=== PATIENT | male | born 1965 | race African-American/Black ===

== ENCOUNTER 2018-01-23 14:23 | Inpatient (IN) ==
[2018-01-23] MEDS ORDERED: Acetaminophen 325 MG Tablet PO PRN (19:43)
[2018-01-23] MEDS ORDERED: Aluminum/Magnesium/Simethacone Susp 30 ML UDC PO PRN (19:44)
[2018-01-23] MEDS: QUEtiapine 100 MG Tablet PO SCH (21:45)
[2018-01-23] MEDS: OXcarbazepine 300 MG Tablet PO SCH (21:45)
[2018-01-23] MEDS: QUEtiapine 25 MG Tablet PO SCH (21:46)
[2018-01-24] MEDS: OXcarbazepine 300 MG Tablet PO SCH ×2 (08:05→21:57)
[2018-01-24] MEDS: Lisinopril 20 MG Tablet PO SCH (08:05)
[2018-01-24] MEDS: QUEtiapine 25 MG Tablet PO SCH ×2 (08:06→21:41)
[2018-01-24 08:40] LABS: Anion Gap 4 meq/L (5-15); Blood Urea Nitrogen 14 mg/dL (7-18); Calcium 8.9 mg/dL (8.5-10.1); Carbon Dioxide 30.4 meq/L (21.0-32.0); Chloride 107 meq/L (98-107); Glomerular Filtration Rate Greater Than 89 mL/min (>89); Glucose,Random 161 mg/dL (74-106); Potassium 4.4 meq/L (3.5-5.1); Sodium 141 meq/L (136-145); Triglycerides 128 mg/dL (42-150)
[2018-01-24 08:43] LABS: Chol/HDL Ratio 1.68 Ratio; Cholesterol 136 mg/dL (120-200); HDL Cholesterol 80.9 mg/dL (40.0-60.0); LDL Cholesterol,Calculated 30 mg/dL (0-99)
[2018-01-24] MEDS ORDERED: Aluminum/Magnesium/Simethacone Susp 30 ML UDC PO PRN (11:12)
[2018-01-24] MEDS ORDERED: Lisinopril 20 MG Tablet PO SCH (11:15)
--- NOTE | 2018-01-24 11:28 | P.HPPSY ---
Provisional Diagnosis Admission Date: January 23, 2018 18:17 Secretary I.: Cocaine abuse, marijuana abuse, substance-induced psychosis with hallucinations , personality disorder cluster B Competence Certification of Person's Competence To Provide Express and Informed Consent I have personally examined Harjit Guerra, a person being served at [facility] on, January 24, 2018 1118. Express and informed consent means consent voluntarily given in writing, by a competent person, after sufficient explanation and disclosure of the subject matter involved to enable the person to make a knowing and willful decision without any element of force, fraud, deceit, duress, or other form of constraint or coercion. This person is 18 years of age or older, is not now known to be incompetent to consent to treatment with a guardian advocate, and does not have a health care surrogate or proxy currently making medical treatment decisions. I have found this person to be one of the following: [xxx] Competent to provide express and informed consent, as defined above, for voluntary admission to this facility and is competent to provide express and informed consent for treatment. He/she has the consistent capacity to make well reasoned, willful, and knowing decisions concerning his or her medical or mental health treatment. The person fully and consistently understands the purpose of the admission for examination/placement and is fully capable of personally exercising all rights assured under [place] [] Incompetent to provide express and informed consent to voluntary admission, and this is incompetent to provide express and informed consent to treatment. The person must be transferred to involuntary status and a petition for a guardian advocate filed with the Circuit Court. [] Refusing to provide express and informed consent to voluntary admission but is competent to provide express and informed consent for treatment. The person must be discharged or transferred to involuntary status. Form shall be completed within 24 hours of a person's arrival at the receiving facility and filed in the clinical record of each person: 1. Admitted on a voluntary basis 2. Permitted to provide express and informed consent to his/her own treatment 3. Allowed to transfer from involuntary to voluntary status 4. Prior to permitting a person to consent to his or her own treatment after having been previously found incompetent to consent to treatment. History of Present Illness Capacity: Has capacity History of Present Illness: Patient is a 52-year-old -[place] male comes here under Walker act from [facility] dated 01/24/2018 at 0140 hours that document reviewed essentially states he reports no onset of hearing voices telling him to cut his own throat patient seen screen at that facility urine toxicology positive for marijuana and cocaine. Patient transferred here under the Walker act after being medically cleared at that facility. At the present time patient laying in his bed on 2700. Also present was nurse Peg and counselor Don. Giving a contradictory story about his recent history. He states he goes to mental health clinic in [place] that he was there to get refills on his medicines since he been out of his medicine for almost a month however it appears there was narrowing lunchtime and he met some friends there and they went out and they smoke marijuana and did cocaine leading to him not returning there to get his refills leading him to go to the hospital and winding up here. Patient did acknowledge her criminal history of dealing in cocaine [facility] 9 [facility] out of [facility] around 2017. He minimizes his substance use he gets angry and somewhat paranoid when I attempted to get more specific details. He initially said he does not have a mental illness and is quite vague about it and his need for medications then he said he went to the hospital initially to get medicines for his mental illness. Patient is vague about suicidality with me he is vague about voices at this time. He states he is essentially homeless right now. Per his med reconciliation is on multiple medications in an various small dosages. In any event at this time patient does meet criteria for further observation for 24 hours especially continuances some day and there are no other resources available. We will continue his medications to the med reconciliation. With the intention of continuing them tonight patient to be discharged tomorrow to himself with perhaps a small amount of his medications and he can return to follow up with his clinic in [place]. We will also attempt to refrain from any substances of abuse such as opiates or benzodiazepines or barbiturates - Inpatient Certification I certify that the inpatient services were ordered in accordance with Medicare regulations governing the order. This includes certification that hospital inpatient services are reasonable and necessary and in the case of services not specified as inpatient-only under 42 CFR 419.22(n), that they are appropriately provided as inpatient services in accordance to with the 2-midnight benchmark under 43 CFR 412.3(e) I certify that inpatient psychiatric hospital services are medically necessary. Evaluation and treatment and/or diagnostic testing are expected to improve the patient's condition. The patient needs on a daily basis, active treatment furnished directly by or requiring the supervision of inpatient psychiatric facility personnel. Estimated Total Length of Stay (Days): 1 Plans for Post Hospital Care: Not yet determined Review of Systems All other systems reviewed negative except as stated in HPI [facility] - History History Provided By: Patient, Medical Record - Tobacco History Second Hand Smoke Exposure: No Tobacco Use In Past 30 Days: No Smoking Status: Former smoker Tobacco Type: Cigarettes - Alcohol History How Often Do You Have a Drink Containing Alcohol: Monthly or less - Substance Use History Substance History: No History of Abuse - Immunization History Tetanus Immunization: <5 Years Hx Influenza Vaccine This Season: Yes Quality Measures - Psychiatric History Psychological trauma history: Patient vaguely denies Violence risk to others in the last 6 months: Patient denies Violence risk to self in the last 6 months: Patient makes statements concerning voices telling him to harm himself - Substance Abuse History Drug or alcohol use in the past 12 months: Marijuana and cocaine - Patient Strengths Patient's strengths (minimum of 2): Patient verbal able access healthcare Medications and Allergies Active Medications: Active Medications Acetaminophen (Tylenol) 650 mg PO Q4H PRN PRN Reason: PAIN SCALE 1-5 OR TEMP>101F Al Hydrox/Mg Hydrox/Simethicone (Mag-Al Plus Susp Liq) 30 ml PO Q6H PRN PRN Reason: DYSPEPSIA Al Hydrox/Mg Hydrox/Simethicone (Mag-Al Plus Susp Liq) 30 ml PO Q6H PRN PRN Reason: DYSPEPSIA Al Hydroxide/Mg Hydroxide (Milk Of Magnesia Liq) 30 ml PO DAILY PRN PRN Reason: CONSTIPATION Al Hydroxide/Mg Hydroxide (Milk Of Magnesia Liq) 30 ml PO Q12H PRN PRN Reason: Mild Constipation Aripiprazole (Abilify) 20 mg PO DAILY [facility] Last Admin: 01/24/18 08:42 Dose: 20 mg Aripiprazole (Abilify) 20 mg PO DAILY [facility] Aspirin (Ecotrin) 81 mg PO DAILY [facility] Last Admin: 01/24/18 08:05 Dose: 81 mg Atorvastatin Calcium (Lipitor) 80 mg PO [facility] Last Admin: 01/23/18 21:46 Dose: 80 mg Atorvastatin Calcium (Lipitor) 80 mg PO [facility] Buspirone HCl (Buspar) 10 mg PO BID [facility] Last Admin: 01/24/18 08:05 Dose: 10 mg Clonidine HCl (Catapres) 0.1 mg PO BID [facility] Last Admin: 01/24/18 08:06 Dose: 0.1 mg Clonidine HCl (Clonidine (Nicu) 20 Mcg/Ml Liq) 100 mcg PO BID [facility] Hydroxyzine HCl (Atarax) 50 mg PO Q6H PRN PRN Reason: ANXIETY Insulin Aspart (Novolog Insulin Correctional Sugar Inj) 8 unit SQ TIDAC [facility] Lisinopril (Prinivil) 20 mg PO DAILY [facility] Last Admin: 01/24/18 08:05 Dose: 20 mg Lisinopril (Prinivil) 20 mg PO DAILY [facility] Metformin HCl (Glucophage) 500 mg PO BID [facility] Last Admin: 01/24/18 08:05 Dose: 500 mg Non-Formulary Medication (Quetiapine [Seroquel]) 50 mg PO BID [facility] Oxcarbazepine (Trileptal) 300 mg PO BID [facility] Last Admin: 01/24/18 08:05 Dose: 300 mg Oxcarbazepine (Trileptal) 300 mg PO BID [facility] Paroxetine HCl (Paxil) 20 mg PO DAILY [facility] Last Admin: 01/24/18 08:42 Dose: 20 mg Paroxetine HCl (Paxil) 20 mg PO DAILY [facility] Quetiapine Fumarate (Seroquel) 50 mg PO BID [facility] Last Admin: 01/24/18 08:06 Dose: 50 mg Quetiapine Fumarate (Seroquel) 100 mg PO [facility] Last Admin: 01/23/18 21:45 Dose: 100 mg Allergies Allergy/AdvReac Type Severity Reaction Status Date / Time No Known Allergies Allergy Verified 01/23/18 15:07 Home Medications Medication Instructions Recorded Confirmed Type aripiprazole [Abilify] 20 mg PO DAILY 01/24/18 01/24/18 History atorvastatin [Lipitor] 80 mg PO HS 01/24/18 01/24/18 History buspirone 10 mg/day PO DAILY 01/24/18 01/24/18 History clonidine HCl 0.1 mg PO BID 01/24/18 01/24/18 History insulin aspart U-100 8 unit SUB-Q TIDAC 01/24/18 01/24/18 History lisinopril 20 mg PO DAILY 01/24/18 01/24/18 History oxcarbazepine 300 mg PO BID 01/24/18 01/24/18 History oxcarbazepine [Trileptal] 300 mg PO BID 01/24/18 01/24/18 History paroxetine HCl 20 mg PO DAILY 01/24/18 01/24/18 History quetiapine [Seroquel] 50 mg PO BID 01/24/18 01/24/18 History Results - Labs CBC & Chem 7: 01/24/18 07:50 Labs: Laboratory Results - last 24 hr 01/23/18 01/24/18 20:57 07:50 Sodium 141 Potassium 4.4 Chloride 107 Carbon Dioxide 30.4 Anion Gap 4 L BUN 14 Creatinine 1.02 Estimated GFR Greater than 89 POC Glucose 233 H Random Glucose 161 H Calcium 8.9 Triglycerides 128 Cholesterol 136 LDL Cholesterol, Calc 30 HDL Cholesterol 80.9 H Cholesterol/HDL Ratio 1.68 Exam Vital signs: Vital Signs 01/23/18 18:40 01/24/18 06:19 Temperature 98.3 F 97.6 F Pulse Rate 71 68 Respiratory Rate 17 Blood Pressure 161/80 H 127/82 Pulse Oximetry 100 Intake & Output 01/23/18 01/24/18 01/24/18 18:59 06:59 18:59 Weight 80 kg 72.7 kg Other: Weight On Admission 72.7 kg Narrative: Patient laying in his bed he is in no acute distress, he is in no respiratory distress, no complaints of chest pain no complaints of abdominal pain patient moving all 4 extremities without difficulty Mental Status Examination Appearance: Disheveled Consciousness: Alert Orientation: x4 Motor Activity: Normal gait Speech: Unremarkable Language: Adequate Fund of Knowledge: Adequate Attention and Concentration: Adequate Memory: Unremarkable (At times vague) Mood: Angry (Euthymic), Irritable (Entitled), Other Affect: Other (Good range and intensity) Thought Process & Associations: Intact Thought Content: Hallucinations (Vague voices) Hallucination Type: Auditory (Vague) Delusion Type: Other (Vigilant) Suicidal Ideation: Yes (Vague perhaps somewhat manipulative) Suicidal Plan: Yes Suicidal Intention: Yes Homicidal Ideation: No Homicidal Plan: No Homicidal Intention: No Insight: Poor Judgment: Poor Assessment and Plan - Assessment (1) Cocaine abuse Code(s): F14.10 - Cocaine abuse, uncomplicated Status: Acute (2) Marijuana abuse Code(s): F12.10 - Cannabis abuse, uncomplicated Status: Acute (3) Substance-induced psychotic disorder with hallucinations Code(s): F19.951 - Other psychoactive substance use, unspecified with psychoactive substance-induced psychotic disorder with hallucinations Status: Acute (4) Cluster B personality disorder Code(s): F60.9 - Personality disorder, unspecified Status: Acute - Plan Plan: Estimated LOS: [] days Patient meets criteria for brief observation. Though I feel he does not meet Walker criteria thus I will lift Walker act allow her to sign voluntary will continue his psychotropic medication and medical medication per the med reconciliation. I feel there is a degree of manipulation and perhaps malingering with this but she will watch the patient overnight and consider discharge tomorrow with return follow-up in his clinic in [place] Justification for Continued Inpatient Stay: Observe next 24 hours for stability Discharge Planning: Discharge to [place] follow-up mental health clinic there
[2018-01-24] MEDS ORDERED: QUETIAPINE 50 MG PO SCH (11:30)
[2018-01-24] MEDS ORDERED: OXcarbazepine 300 MG Tablet PO SCH (11:30)
[2018-01-24] MEDS ORDERED: cloNIDine Susp (NICU) 20 MCG/ML 30 ML Bottle PO SCH (12:00)
[2018-01-24 14:14] LABS: Hemoglobin A1c 8.4 % (4.3-6.0)
--- NOTE | 2018-01-24 15:33 | P.CON ---
History of Present Illness Service: [facility] Consult date: 01/24/18 Requesting Physician: Trung Hurley Reason for Consult: Diabetes Primary Care Provider: UNKNOWN Chief Complaint: Diabetes History of Present Illness: Patient is a 52-year-old AA male with past medical history of HTN, HLD, DM 2 who was initially admitted to [facility] in [place] under Walker act due to suicidal thoughts. He is now admitted to inpatient psychiatry and for further evaluation. Consulted for assistance with medical management of diabetes. Patient seen and examined today with nurses -Moon. Patient states he is doing okay. Denies any suicidal ideation and homicidal ideation. States he had diabetes for 12 years and in the last 4 years was started also on insulin. Denies pain and discomfort. Denies SOB/ dyspnea. Denies chest pain, palpitations, headaches, dizziness. Denies fevers, chills, n/v/d. Denies dysuria. Review of Systems All other systems reviewed negative except as stated in HPI [facility] - History History Provided By: Patient, Medical Record - Medical History Medical History: Medical History (Last Updated 01/24/18 @ 16:10 by MEY Webb) Diabetes mellitus HLD (hyperlipidemia) HTN (hypertension) - Surgical History Surgical History: Surgical History (Last Updated 01/24/18 @ 16:10 by MEY Webb) No history of previous surgery - Family History Family History: Family History (Last Updated 01/24/18 @ 16:11 by MEY Webb) Father Diabetes HTN (hypertension) Mother Diabetes HTN (hypertension) - Tobacco History Second Hand Smoke Exposure: No Tobacco Use In Past 30 Days: No Smoking Status: Former smoker Tobacco Type: Cigarettes - Alcohol History How Often Do You Have a Drink Containing Alcohol: Monthly or less - Substance Use History Substance History: No History of Abuse - Immunization History Tetanus Immunization: <5 Years Hx Influenza Vaccine This Season: Yes Medications and Allergies Active Medications: Active Medications Acetaminophen (Tylenol) 650 mg PO Q4H PRN PRN Reason: PAIN SCALE 1-5 OR TEMP>101F Al Hydrox/Mg Hydrox/Simethicone (Mag-Al Plus Susp Liq) 30 ml PO Q6H PRN PRN Reason: DYSPEPSIA Al Hydroxide/Mg Hydroxide (Milk Of Magnesia Liq) 30 ml PO DAILY PRN PRN Reason: CONSTIPATION Aripiprazole (Abilify) 20 mg PO DAILY [facility] Last Admin: 01/24/18 08:42 Dose: 20 mg Aspirin (Ecotrin) 81 mg PO DAILY [facility] Last Admin: 01/24/18 08:05 Dose: 81 mg Atorvastatin Calcium (Lipitor) 80 mg PO HS [facility] Last Admin: 01/23/18 21:46 Dose: 80 mg Buspirone HCl (Buspar) 10 mg PO BID [facility] Last Admin: 01/24/18 08:05 Dose: 10 mg Clonidine HCl (Catapres) 0.1 mg PO BID [facility] Last Admin: 01/24/18 08:06 Dose: 0.1 mg Hydroxyzine HCl (Atarax) 50 mg PO Q6H PRN PRN Reason: ANXIETY Insulin Aspart (Novolog Inj) 8 units SQ TIDAC [facility] Lisinopril (Prinivil) 20 mg PO DAILY [facility] Last Admin: 01/24/18 08:05 Dose: 20 mg Metformin HCl (Glucophage) 500 mg PO BID [facility] Last Admin: 01/24/18 08:05 Dose: 500 mg Oxcarbazepine (Trileptal) 300 mg PO BID [facility] Last Admin: 01/24/18 08:05 Dose: 300 mg Paroxetine HCl (Paxil) 20 mg PO DAILY [facility] Last Admin: 01/24/18 08:42 Dose: 20 mg Quetiapine Fumarate (Seroquel) 50 mg PO BID [facility] Last Admin: 01/24/18 08:06 Dose: 50 mg Quetiapine Fumarate (Seroquel) 100 mg PO [facility] Last Admin: 01/23/18 21:45 Dose: 100 mg Allergies Allergy/AdvReac Type Severity Reaction Status Date / Time No Known Allergies Allergy Verified 01/23/18 15:07 Home Medications Medication Instructions Recorded Confirmed Type aripiprazole [Abilify] 20 mg PO DAILY 01/24/18 01/24/18 History atorvastatin [Lipitor] 80 mg PO HS 01/24/18 01/24/18 History buspirone 10 mg/day PO DAILY 01/24/18 01/24/18 History clonidine HCl 0.1 mg PO BID 01/24/18 01/24/18 History insulin aspart U-100 8 unit SUB-Q TIDAC 01/24/18 01/24/18 History lisinopril 20 mg PO DAILY 01/24/18 01/24/18 History oxcarbazepine 300 mg PO BID 01/24/18 01/24/18 History oxcarbazepine [Trileptal] 300 mg PO BID 01/24/18 01/24/18 History paroxetine HCl 20 mg PO DAILY 01/24/18 01/24/18 History quetiapine [Seroquel] 50 mg PO BID 01/24/18 01/24/18 History Physical Exam Vital signs: Vital Signs 01/23/18 18:40 01/24/18 06:19 Temperature 98.3 F 97.6 F Pulse Rate 71 68 Respiratory Rate 17 Blood Pressure 161/80 H 127/82 Pulse Oximetry 100 Intake & Output 01/23/18 01/24/18 01/24/18 18:59 06:59 18:59 Weight 80 kg 72.7 kg Other: Weight On Admission 72.7 kg Narrative: GENERAL: This is a thin appearing, in no apparent distress. SKIN: Warm and dry. HEENT: Normocephalic. Pupils equal round and reactive. Nose without bleeding. Airway patent. NECK: Trachea midline. Supple. CARDIOVASCULAR: Regular rate and rhythm without murmurs, gallops, or rubs. RESPIRATORY: No rales, or rhonchi. Diminished bases. GASTROINTESTINAL: Abdomen soft, non-tender, nondistended. Bowel Sounds normoactive x4. MUSCULOSKELETAL: Extremities without clubbing, cyanosis, edema. NEUROLOGICAL: Awake and alert. Oriented to time, place, person. No focal neuro deficit. Moves all extremities. Normal speech. Assessment and Plan - Plan Patient is a 52-year-old AA male with past medical history of HTN, HLD, DM 2 who was initially admitted to [facility] in [place] under Walker act due to suicidal thoughts. He is now admitted to inpatient psychiatry and for further evaluation. Consulted for assistance with medical management of diabetes. Depression -Managed by psychiatry team HTN HLD -Continue with medication lisinopril 20 mg daily, clonidine 0.1 mg twice daily, Lipitor 80 mg daily -Monitor BP trend DM 2, insulin-dependent, poorly controlled, no acute complications, no obvious manifestations -On prandial insulin outpatient, metformin use -Hemoglobin A1c 8.4 -Start insulin sliding scale. -May possibly benefit with basal insulin, will start Levemir 5 units, hold prandial for now DVT Prop Ambulatory Code Status: Full code Discussed Condition With: Patient, nurse Discharge Planning: DC disposition by primary team
[2018-01-24] MEDS ORDERED: Dextrose 50% in Water 50 ML Vial IV.PUSH PRN (16:03)
[2018-01-24] MEDS: Insulin NovoLOG Aspart Correctional Sugar Inj SQ SCH ×2 (16:58→21:54)
[2018-01-24] MEDS ORDERED: Insulin Detemir Inj 1,000 UNIT/10 ML Vial SQ SCH (21:00)
[2018-01-24] MEDS: QUEtiapine 100 MG Tablet PO SCH (21:41)
[2018-01-25] MEDS: Insulin NovoLOG Aspart Correctional Sugar Inj SQ SCH ×4 (08:27→21:34)
[2018-01-25] MEDS: OXcarbazepine 300 MG Tablet PO SCH ×2 (09:30→20:56)
[2018-01-25] MEDS: Lisinopril 20 MG Tablet PO SCH (09:30)
[2018-01-25] MEDS: QUEtiapine 25 MG Tablet PO SCH ×2 (09:30→20:57)
--- NOTE | 2018-01-25 13:52 | P.PN ---
Subjective Interval history: Follow-up visit HTN, DM. Patient seen and examined today. Reports he is doing well. Denies pain and discomfort. Denies SOB/ dyspnea. Denies chest pain, palpitations, headaches, dizziness. Denies fevers, chills, n/v/d. Denies hematuria, dysuria. Physical Exam Vital signs: Vital Signs 01/24/18 17:50 01/25/18 06:00 Pulse Rate 72 69 Respiratory Rate 17 17 Blood Pressure 155/73 H 142/75 H Pulse Oximetry 98 96 Intake & Output 01/24/18 01/25/18 01/25/18 18:59 06:59 18:59 Weight 73.8 kg Narrative: GENERAL: This is a thin appearing, in no apparent distress. SKIN: Warm and dry. HEENT: Normocephalic. Pupils equal round and reactive. Nose without bleeding. Airway patent. NECK: Trachea midline. Supple. CARDIOVASCULAR: Regular rate and rhythm without murmurs, gallops, or rubs. RESPIRATORY: No rales, or rhonchi. Diminished bases. GASTROINTESTINAL: Abdomen soft, non-tender, nondistended. Bowel Sounds normoactive x4. MUSCULOSKELETAL: Extremities without clubbing, cyanosis, edema. NEUROLOGICAL: Awake and alert. Oriented to time, place, person. No focal neuro deficit. Moves all extremities. Normal speech. Results - Labs CBC & Chem 7: 01/24/18 07:50 Laboratory Results - last 24 hr 01/24/18 01/24/18 01/24/18 07:50 16:30 22:06 POC Glucose 160 H 268 H Hemoglobin A1c 8.4 H 01/25/18 01/25/18 08:09 11:32 POC Glucose 216 H 152 H Hemoglobin A1c Assessment and Plan - Plan Patient is a 52-year-old AA male with past medical history of HTN, HLD, DM 2 who was initially admitted to [facility] in [place] under Walker act due to suicidal thoughts. He is now admitted to inpatient psychiatry and for further evaluation. Consulted for assistance with medical management of diabetes. Depression -Managed by psychiatry team HTN HLD -Continue with medication lisinopril 20 mg daily, clonidine 0.1 mg twice daily, Lipitor 80 mg daily -Monitor BP trend DM 2, insulin-dependent, poorly controlled, no acute complications, no obvious manifestations -On prandial insulin outpatient, metformin use -Hemoglobin A1c 8.4 -Start insulin sliding scale. -Increase Levemir 8 SQ , prandial insulin 4units DVT Prop Ambulatory Code Status: Full code Discussed Condition With: Patient, nurse Discharge Planning: DC disposition by primary team
--- NOTE | 2018-01-25 16:17 | P.PNPSY ---
Subjective Remarks: Patient seen for follow-up, chart reviewed. Discussion nursing staff reported the patient minimizing drug use, has a FACT team in [place]. Patient was found sitting in hospital bed noted B, cooperative. Patient states that he is feeling "fine" stating he is feeling "still a little suicidal", with occasional command auditory hallucinations to hurt himself. Patient later reported to have cessation of suicide ideation after taking his medications. Patient states he looks forward to reconnecting with his daughter, find his own place to live as well as get back on his medications. Patient states that he has been off his medication for 4 weeks, was unclear as to why he had waited for so long to resume his medications but states he planning on attending his outpatient clinic called [facility] and continuing contact with his caseworker intake beyond, for outpatient follow-up. Patient recalls having engaged in recent substance use before acquiring his prescription medications which led to his hospitalization currently. Patient continues report having some auditory hallucinations. When discussing plan of having him return back to [place] whom he states stays with his brother patient noted to have improved affect, seemed pleased with the help of her having him return to [place]. Patient did not appear to be internally preoccupied nor responding to internal stimuli during interview and symptoms likely secondary to recent substance intoxication and/or conscious simulation for secondary gain. Patient agrees with plan to return to [place] tomorrow and reconnect with his outpatient mental health team and fill his prescriptions to continue treatment. Patient denies any SI or HI at this time. Review of Systems All other systems reviewed negative except as stated in HPI Mental Status Examination Appearance: Disheveled Consciousness: Alert Orientation: x4 Motor Activity: Normal gait Speech: Unremarkable Language: Adequate Fund of Knowledge: Adequate Attention and Concentration: Adequate Memory: Unremarkable (At times vague) Mood: Other ("Fine") Affect: Other (Good range and intensity) Thought Process & Associations: Intact Thought Content: Hallucinations (Vague voices) Hallucination Type: Auditory (Vague) Delusion Type: Other (Vigilant) Suicidal Ideation: No Suicidal Plan: No Suicidal Intention: No Homicidal Ideation: No Homicidal Plan: No Homicidal Intention: No Insight: Fair Judgment: Impulsive Assessment and Plan - Assessment (1) Cocaine abuse Code(s): F14.10 - Cocaine abuse, uncomplicated Status: Acute (2) Marijuana abuse Code(s): F12.10 - Cannabis abuse, uncomplicated Status: Acute (3) Substance-induced psychotic disorder with hallucinations Code(s): F19.951 - Other psychoactive substance use, unspecified with psychoactive substance-induced psychotic disorder with hallucinations Status: Acute (4) Cluster B personality disorder Code(s): F60.9 - Personality disorder, unspecified Status: Acute - Plan Plan: Patient continues to endorse auditory hallucinations, denying any suicide ideations although making statements with nursing staff of suicide ideations if discharged. Patient agrees with discharge plan to return to [place] tomorrow and continues his treatment and connect with outpatient mental health follow-up. Patient decrease in symptoms and improvement likely secondary to recent substance intoxication which are mitigating as well as a degree of conscious stimulation for secondary gain of housing. Patient agreed to transport directly to his mental health clinic tomorrow morning to continue his treatment as he is able to fill his medications they are as well as reconnect with the clinic. We will continue current treatment. We will continue to monitor mood and behavior. Patient likely for discharge tomorrow. Justification for Continued Inpatient Stay: At risk of further decompensation a lower level care.
[2018-01-25] MEDS ORDERED: Insulin Detemir Inj 1,000 UNIT/10 ML Vial SQ SCH (17:17)
[2018-01-25] MEDS: QUEtiapine 100 MG Tablet PO SCH (20:54)
[2018-01-26] MEDS: QUEtiapine 25 MG Tablet PO SCH (08:27)
[2018-01-26] MEDS: OXcarbazepine 300 MG Tablet PO SCH (08:27)
[2018-01-26] MEDS: Lisinopril 20 MG Tablet PO SCH (08:28)
--- NOTE | 2018-01-26 16:43 | P.DSPSY ---
Psychiatry Discharge Summary Inpatient Psychiatric care?: Yes Advance Directives: No Mental Health Advance Directive: No Health Care Proxy: No - Admission Admission Date: January 23, 2018 18:17 - Admission Diagnosis (1) Cocaine abuse Code(s): F14.10 - Cocaine abuse, uncomplicated (2) Marijuana abuse Code(s): F12.10 - Cannabis abuse, uncomplicated (3) Substance-induced psychotic disorder with hallucinations Code(s): F19.951 - Other psychoactive substance use, unspecified with psychoactive substance-induced psychotic disorder with hallucinations (4) Cluster B personality disorder Code(s): F60.9 - Personality disorder, unspecified Brief History: Patient is a 52-year-old -[place] male comes here under Walker act from [facility] dated 01/24/2018 at 0140 hours that document reviewed essentially states he reports no onset of hearing voices telling him to cut his own throat patient seen screen at that facility urine toxicology positive for marijuana and cocaine. Patient transferred here under the Walker act after being medically cleared at that facility. At the present time patient laying in his bed on 2700. Also present was nurse Peg and counselor Don. Giving a contradictory story about his recent history. He states he goes to mental health clinic in [place] that he was there to get refills on his medicines since he been out of his medicine for almost a month however it appears there was narrowing lunchtime and he met some friends there and they went out and they smoke marijuana and did cocaine leading to him not returning there to get his refills leading him to go to the hospital and winding up here. Patient did acknowledge her criminal history of dealing in cocaine spending 9 years in alf getting out of alf around 2016. He minimizes his substance use he gets angry and somewhat paranoid when I attempted to get more specific details. He initially said he does not have a mental illness and is quite vague about it and his need for medications then he said he went to the hospital initially to get medicines for his mental illness. Patient is vague about suicidality with me he is vague about voices at this time. He states he is essentially homeless right now. Per his med reconciliation is on multiple medications in an various small dosages. In any event at this time patient does meet criteria for further observation for 24 hours especially continuances some day and there are no other resources available. We will continue his medications to the med reconciliation. With the intention of continuing them tonight patient to be discharged tomorrow to himself with perhaps a small amount of his medications and he can return to follow up with his clinic in [place]. We will also attempt to refrain from any substances of abuse such as opiates or benzodiazepines or barbiturates Tobacco Use In Past 30 Days: No How Often Do You Have a Drink Containing Alcohol: Monthly or less Hospital Course: Patient is a 52 y/o man, homeless, unemployed with past psychiatric history of cocaine and THC use disorder, schizophrenia as per patient, previous psychiatric admissions who was endorsing command auditory hallucinations to hurt himself in the context of noncompliance with medications and polysubstance intoxication which patient was admitted to the inpatient psychiatry unit for further stabilization. Patient was resumed on aripiprazole 20mg daily, quetiapine 50mg/150mg, paroxetine 20mg daily, oxcarbazepine 300mg BID, buspirone 10mg BID along with medications for chronic medical illnesses which patient tolerated well and noted to be calm and cooperative with staff. He was noted to be irritable initially but was able to maintain stable mood. Patient was observed to not be responding to internal stimuli nor to be internally preoccupied; participated in self care and adequate nutritional intake. Patient was noted to have been compliant with treatment, cooperative with staff. Upon discharge patient stated that she was feeling good, denied any psychotic symptoms, denied any SI, HI or delusions. Patient agreed to continue medication regimen and outpatient follow up for continuity of care. Patient was counseled on importance of abstinence from substance use which he agreed. I have counseled the patient regarding warning signs for need to return to the psychiatric emergency room as part of a general safety plan. Patient advised to call 911 or go nearest ED in case of emergency. Patient agrees with plan. - Discharge Discharge Date: 01/26/18 - Discharge Diagnosis (1) Cocaine abuse Code(s): F14.10 - Cocaine abuse, uncomplicated Status: Acute (2) Marijuana abuse Code(s): F12.10 - Cannabis abuse, uncomplicated Status: Acute (3) Substance-induced psychotic disorder with hallucinations Code(s): F19.951 - Other psychoactive substance use, unspecified with psychoactive substance-induced psychotic disorder with hallucinations Status: Acute (4) Cluster B personality disorder Code(s): F60.9 - Personality disorder, unspecified Status: Acute Discharge Disposition: Home - Discharge Instructions Discharge Diet: Heart Healthy Diet Activities You Can Perform: Regular- No Restrictions - Discharge Time > 30 minutes Mental Status Examination Appearance: Appropriate Consciousness: Alert Orientation: x4 Motor Activity: Normal gait Speech: Unremarkable Language: Adequate Fund of Knowledge: Adequate Attention and Concentration: Adequate Memory: Unremarkable (At times vague) Mood: Other ("Fine") Affect: Appropriate, Other (Good range and intensity) Thought Process & Associations: Intact Thought Content: Appropriate Hallucination Type: None Delusion Type: None Suicidal Ideation: No Suicidal Plan: No Suicidal Intention: No Homicidal Ideation: No Homicidal Plan: No Homicidal Intention: No Insight: Fair Judgment: Impulsive Discharge/Advance Care Plan - Results Vital Signs: Last Vital Signs Temp 97.3 F L 01/26/18 05:50 Pulse 66 01/26/18 05:50 Resp 16 01/26/18 05:50 BP 145/79 H 01/26/18 05:50 Pulse Ox 97 01/26/18 05:50 Lab Results: Abnormal Lab Results 01/25/18 01/25/18 01/26/18 16:40 20:22 07:20 POC Glucose 186 H 175 H 160 H Laboratory Results Hemoglobin A1c 8.4 % (4.3-6.0) H 01/24/18 07:50 Triglycerides 128 mg/dL (42-150) 01/24/18 07:50 Cholesterol 136 mg/dL (120-200) 01/24/18 07:50 LDL Cholesterol, Calc 30 mg/dL (0-99) 01/24/18 07:50 HDL Cholesterol 80.9 mg/dL (40.0-60.0) H 01/24/18 07:50 Summary of Procedures: none Pending Results: None - Medications Number of antipsychotic medications at discharge: 2 - Discharge Care Plan Goals to Promote Your Health: * To prevent worsening of your condition and complications * To maintain your health at the optimal level Directions to Meet Your Goals: Take your medications as prescribed Follow your dietary instruction Follow activity as directed Keep your appointments as scheduled Take your immunizations and boosters as scheduled If your symptoms worsen call your PCP, if no PCP go to Urgent Care Center or Emergency Room For 29/12 questions related to your inpatient stay or results of tests pending at discharge, please contact Dr. Mike Arenas MD at Smoking is Dangerous to Your Health. Avoid second hand smoking
== END 2018-01-26 09:00 | disposition home or self-care (01) ==
LOC: H270 18:17
PROVIDERS: ADMIT Student in an Organized Health Care Education/Training Program; ATTEND Student in an Organized Health Care Education/Training Program
CPT/HCPCS: 80048; 80061; 82948; 82962; 83036; J1815